=== PATIENT | female | born 1955 | race Caucasian/White ===

== ENCOUNTER → 2019-06-14 10:12 | Outpatient (CLI) | payer BC, SELFPAY ==
--- NOTE | ~2019-06-14 | US_ITS ---
EXAMINATION: US carotid duplex BI DATE: 06/14/2019 10:42 INDICATION: Headache. TECHNIQUE: Grayscale, color Doppler, and pulsed Doppler images of the cervical carotid arteries were obtained. The degree of vessel stenosis is placed in one of the following categories: normal, <50%, 5 0-69%, >=70% but less than near-occlusion, near-occlusion, or total occlusion. Note that percent sten osis relative to normal distal artery lumen diameter is indirectly measured from velocity measurement s as described by Alfonso, et al. Radiology 2003; 229:340-346. COMPARISON: None. FINDINGS: RIGHT: The right common carotid artery (CCA) peak systolic velocity (PSV) is 84 cm/s. The right internal car otid artery (ICA) PSV is 65 cm/s. The right ICA end-diastolic velocity (EDV) is 28 cm/s. The right IC A/CCA PSV ratio is 0.8. Grayscale and color Doppler images yield an estimate of <50% diameter reducti on from plaque in the ICA. There is antegrade flow in the right vertebral artery. LEFT: The left CCA PSV is 90 cm/s. The left ICA PSV is 64 cm/s. The left ICA EDV is 26 cm/s. The left ICA/C CA PSV ratio is 0.7. Grayscale and color Doppler images yield an estimate of <50% diameter reduction from plaque in the ICA. There is antegrade flow in the left vertebral artery. IMPRESSION: 1. <50% stenosis in the right internal carotid artery. 2. <50% stenosis in the left internal carotid artery. Reviewed, dictated and finalized at location A. T ATTENDANT
== END ==
PROVIDERS: PCP Internal Medicine; Visit Provider Internal Medicine
DX: R51 Headache (principal); I65.23 Occlusion and stenosis of bilateral carotid arteries
CPT/HCPCS: 93880

== ENCOUNTER 2019-11-05 09:03 | Outpatient (CLI) | payer BC, SELFPAY ==
--- NOTE | ~2019-11-05 | MM_ITS ---
EXAMINATION: MM screening babatunde BI w malcom HISTORY: Screening TECHNIQUE: Craniocaudal and mediolateral oblique 3-D tomosynthesis images were obtained and synthetic 2-D images were generated. CAD analysis was submitted and interpreted. COMPARISON: Comparison to multiple prior studies sequentially, with oldest reviewed study dated 10/2014. BREAST PARENCHYMAL COMPOSITION: The breasts are heterogeneously dense, which may obscure small masses . FINDINGS: There is no evidence of suspicious mass, calcification, or architectural distortion to sugg est malignancy in either breast. There has been no suspicious interval change. IMPRESSION: 1. No mammographic evidence of malignancy. 2. Recommend routine screening mammography in one year. BI-RADS Category 1: Negative Reviewed, dictated and finalized at location A.
== END 2019-11-05 09:04 | disposition home or self-care (01) ==
LOC: ANHIMG 09:05
PROVIDERS: PCP Internal Medicine; Visit Provider Obstetrics & Gynecology
DX: Z12.31 Encounter for screening mammogram for malignant neoplasm of breast (principal)
CPT/HCPCS: 77063; 77067

== ENCOUNTER 2020-11-07 15:26 | Outpatient (CLI) | payer BC, SELFPAY ==
--- NOTE | ~2020-11-07 | MM_ITS ---
EXAMINATION: MM screening babatunde BI w malcom HISTORY: Screening mammogram TECHNIQUE: Craniocaudal and mediolateral oblique 3-D tomosynthesis images were obtained and synthetic 2-D images were generated. CAD analysis was submitted and interpreted. COMPARISON: 11/01/2019, , 09/11/2017 bilateral digital screening mammogram examinations BREAST PARENCHYMAL COMPOSITION: The breasts are heterogeneously dense, which may obscure small masses . FINDINGS: There is no evidence of suspicious mass, calcification, or architectural distortion to sugg est malignancy in either breast. There has been no suspicious interval change. IMPRESSION: 1. No mammographic evidence of malignancy. 2. Recommend routine screening mammography in one year. BI-RADS Category 1: Negative Reviewed, dictated and finalized at location A.
== END 2020-11-07 15:27 | disposition home or self-care (01) ==
LOC: ANHIMG 15:28
PROVIDERS: PCP Internal Medicine; Visit Provider Obstetrics & Gynecology
DX: Z12.31 Encounter for screening mammogram for malignant neoplasm of breast (principal)
CPT/HCPCS: 77063; 77067

== ENCOUNTER → 2021-03-06 12:37 | Outpatient (CLI) | payer BC, SELFPAY ==
--- NOTE | ~2021-03-06 | MR_ITS ---
EXAMINATION: MR venography brain EXAM DATE: 03/06/2021 13:58 INDICATION: New onset of headaches new onset of headaches. TECHNIQUE: Magnetic resonance venogram imaging (MRV) images of the intracranial venous system were ob tained. 2-D [id number]-qi-[id number] imaging was utilized for this examination without contrast. 3-D rotational images generated. Correlation was made with MR brain 2018. FINDINGS: There is expected flow related signal within the sagittal, straight, transverse and sigmoid sinuses. The right sagittal sinus and corresponding internal jugular vein is larger than the left, c ongenital appearance. Internal cerebral veins also demonstrate normal flow related signal. IMPRESSION: Normal, nonthrombosed intracranial venous system. Reviewed, dictated and finalized at location A. E PLANER
--- NOTE | ~2021-03-06 | MR_ITS ---
EXAMINATION: MRA brain wo con EXAM DATE: 03/06/2021 13:47 INDICATION: New onset of headaches new onset of headaches. Headache behind left eye. TECHNIQUE: 3-D [id number] MRA of the intracranial arteries was performed without contrast. There is no prior study for comparison. FINDINGS: There is normal flow related signal seen within the vertebral, basilar and internal carotid arteries. There is no proximal stenosis. There are no aneurysms identified. Both A1 segments are patent. Th ere is right-sided posterior communicating artery dominant posterior cerebral artery. Flow in the cerebral arteries is symmetric. IMPRESSION: Normal MRA brain exam. Reviewed, dictated and finalized at location A. KEY REGAUGER IMPRESSION: Normal MRA brain exam.
== END ==
PROVIDERS: PCP Internal Medicine
DX: R51.9 Headache, unspecified (principal)
CPT/HCPCS: 70544

== ENCOUNTER → 2021-03-07 10:40 | Outpatient (CLI) | payer BC, SELFPAY ==
--- NOTE | ~2021-03-07 | MR_ITS ---
EXAMINATION: MR brain/brain stem wo/w con EXAM DATE: 03/07/2021 11:37 INDICATION: Headache behind left eye, symptoms progressing. TECHNIQUE: Magnetic resonance imaging (MRI) of the brain/brain stem obtained without contrast. Sagit eulogio T1, axial diffusion, gradient echo (T2*), T1, T2, FLAIR sequences obtained. Patient was then inj ected with 10 cc intravenous Multihance contrast. Axial and coronal postcontrast T1 weighted sequence s obtained. Correlation is made to MRA, MRV from yesterday. FINDINGS: There are no areas of restricted diffusion to suggest acute infarction. There is no acute hemorrhage seen on the T2*, a hemosiderin sensitive sequence. No intraparenchymal brain mass. The ve ntricles are normal in size. There are no extra-axial collections. Flow voids are seen in the cereb ral arteries on the T2-weighted sequences consistent with their expected patency. Both of the globe have slightly aspherical shape. Orbits are otherwise unremarkable. Soft tissue is unremarkable. Th ere are no areas of abnormal enhancement on the postcontrast images. IMPRESSION: Slightly aspherical globe shapes. Otherwise unremarkable brain MRI. Reviewed, dictated and finalized at location A. MACY PICKING TECHNICIAN
[2021-03-07 11:06] LABS: Estimated Glomerular Filt Rate > 60
== END ==
PROVIDERS: PCP Internal Medicine
DX: R51.9 Headache, unspecified (principal)
CPT/HCPCS: 70553; A9577

== ENCOUNTER 2021-11-05 05:27 | Emergency (ER) | payer BC, SELFPAY ==
[2021-11-05] VITALS (8 sets, daily range): BP systolic 95–105; BP diastolic 47–73; PULSE 62–73; RESP 12–20; TEMP 36.2; O2SAT 100
--- NOTE | 2021-11-05 05:50 | ECG_ITS ---
Measurements Intervals [place] Rate: 58 P: 74 DE: 216 QRS: 26 QRSD: 81 T: 54 QT: 396 QTc: 391 Interpretive Statements SINUS BRADYCARDIA WITH FIRST DEGREE AV BLOCK INCOMPLETE RIGHT BUNDLE BRANCH BLOCK ABNORMAL ECG Electronically Signed On 11-05-2021 7:05:01 CDT by Brian Thomas D.O.
[2021-11-05] MEDS: MECLIZINE HCL 25 MG TABLET PO (06:00)
[2021-11-05] MEDS: ONDANSETRON HCL ODT 4 MG TABLET PO (06:00)
--- NOTE | 2021-11-05 06:01 | ED.GENADULT ---
HPI - General Adult General Chief complaint: Dizziness Stated complaint: dizziness, nausea Time Seen by Provider: 11/05/21 05:56 History of Present Illness HPI narrative: 66-year-old female presenting to the emergency department for evaluation of vertigo symptoms. Patient was started on Cipro for a urinary tract infection on Friday patient has taken Cipro previously without issue for urinary tract infection currently. Patient woke up on Friday morning and was having some vertigo symptoms that lasted approximately 4 hours. Patient states when she woke up this morning she was having vertigo symptoms again. Patient states that she lies on her right side the symptoms are worsened. When patient is up and moving the symptoms are worsened. Symptoms are improved when she is resting and closing her eyes. Patient denies any associated numbness or weakness. Patient has no prior history of CVA or TIA. Patient did have work-up for frequent headaches earlier in the year and had multiple MRIs which were normal per the patient. Related Data Home Medications Medication Instructions Recorded Confirmed alendronate 35 mg tablet 35 mg PO WEEKLY 09/25/20 amphotericin B liposome 50 mg IV 09/25/20 intravenous suspension ascorbic acid (vitamin C) 1,000 mg 1 g PO DAILY 09/25/20 tablet calcium citrate 200 mg (950 mg) 600 mg PO DAILY 09/25/20 tablet coenzyme Q10 200 mg/gram oral mg PO 09/25/20 powder (H2Q CoQ10) conjugated estrogens 0.45 mg 0.45 mg PO DAILY 09/25/20 tablet (Premarin) lutein 40 mg capsule 40 mg PO DAILY 09/25/20 omega-3 fatty acids 1,000 mg 1,000 mg PO DAILY 09/25/20 capsule (Fish Oil Concentrate) tumeric 100 mg-erika 150 mg-olive cap PO 09/25/20 50 mg-oreg 150 mg-caprylate capsule vitamin E 200 unit capsule 200 unit PO DAILY 09/25/20 Allergies Allergy/AdvReac Type Severity Reaction Status Date / Time Sulfa (Sulfonamide Allergy Mild Unknown Verified 11/05/21 05:50 Antibiotics) meperidine [From Demerol] Allergy Unknown Swelling Verified 11/05/21 05:50 Review of Systems Review of Systems: CONSTITUTIONAL: Denies fever, chills, or sweats. EYES: Denies visual changes, redness, or discharge. ENT: Denies rhinorrhea, congestion, sore throat, or otalgia. CARDIOVASCULAR: Denies chest pain, palpitations, or edema. RESPIRATORY: Denies cough or dyspnea. GASTROINTESTINAL: Nausea GENITOURINARY: Denies dysuria or hematuria. SKIN: Denies rash or itching. MUSCULOSKELETAL: Denies back pain, joint pain, or myalgia. NEUROLOGIC: Vertigo PMFSH Past Medical History Medical History (Updated 11/05/21 @ 07:03 by Darío Alamo MD) Acquired hallux valgus of left foot Claustrophobia Hallux rigidus of left foot Wears glasses Surgical History Surgical History (Updated 09/25/20 @ 08:14 by Christina Dent RT(R)) History of History of surgery on wrist Family History Family History (Updated 09/25/20 @ 08:14 by Christina Dent RT(R)) Mother Hypertension Acute myocardial infarction Family history of elevated blood lipids Family history of coronary artery disease Father Family history of malignant neoplasm of thyroid Other Depression Diabetes mellitus Family history of arthritis Family history of malignant neoplasm Heart disease Social History Social History (Updated 09/25/20 @ 08:14 by Christina Dent RT(R)) Smoking packs per day: 1 Smoking cigarettes per day: 20.0 Smoking status: Former smoker Smoking end date: 04/14/96 Alcohol intake: current Drinks per week: 2 Substance use: never Substance use type: does not use Gender identity (if verbalized by the patient): Female Exam Narrative: APPEARANCE: Well appearing, no pain, no distress, well-nourished. HEAD: normocephalic, atraumatic. EYES: PERRLA/EOMI, conjunctivae clear. NOSE: Normal no drainage EARS:TMS clear with good light reflex. NECK: Supple. No adenopathy, no masses. RESPIRAT
[2021-11-05 06:11] LABS: Basophils Absolute Auto 0.1 K/mm3 (0.0-0.1); Basophils Percent Auto 1.7 % (0.2-1.2); Eosinophils Absolute Auto 0.1 K/mm3 (0-0.3); Eosinophils Percent Auto 2.2 % (0-4.4); Hematocrit 42.8 % (37.0-47.0); Hemoglobin 14.1 g/dL (12.0-15.0); Immature Granulocyte Absolute 0.01 K/mm3 (0.00-0.031); Immature Granulocyte Percent A 0.2 % (0-0.5); Lymphocytes Absolute Auto 2.01 K/mm3 (0.9-3.2); Lymphocytes Percent Auto 36.9 % (18.3-44.2); Mean Corpuscular HGB Conc 32.9 g/dl (32-36); Mean Corpuscular Hemoglobin 30.2 pg (26-34); Mean Corpuscular Volume 91.6 fl (80-100); Mean Platelet Volume 9.5 fl (7.4-10.4); Monocytes Absolute Auto 0.4 K/mm3 (0.1-0.6); Neutrophils Absolute Auto 2.8 K/mm3 (1.3-6.7); Platelet Count Result 270 k/mm3 (150-375); Red Blood Count 4.67 M/mm3 (4.2-5.4); Red Cell Distribution Width 12.4 % (11.5-14.5); White Blood Count 5.5 K/mm3 (4.5-10.0)
[2021-11-05 06:20] LABS: Alanine Aminotransferase 18 U/L (6-35); Albumin Level 4.8 g/dL (3.5-5.1); Alkaline Phosphatase 41 U/L (38-126); Anion Gap 11 mmol/L (8-16); Aspartate Amino Transferase 30 U/L (14-36); Bilirubin,Total 0.7 mg/dL (0.2-1.3); Blood Urea Nitrogen 17 mg/dL (7-17); Calcium 9.5 mg/dL (8.4-10.2); Carbon Dioxide 25 mmol/L (22-30); Chloride 105 mmol/L (98-107); Estimated CRCL calculation 75 ml/min; Estimated Glomerular Filt Rate > 60; Glucose 97 mg/dL (65-110); Potassium 3.9 mmol/L (3.4-5.0); Sodium 141 mmol/L (137-145)
== END 2021-11-05 07:18 | disposition home or self-care (01) ==
PROVIDERS: Emergency Provider Emergency Medicine; PCP Internal Medicine
DX: R42 Dizziness and giddiness (principal); Z87.891 Personal history of nicotine dependence
CPT/HCPCS: 36415; 80053; 85025; 93005; 99283; A9270

== ENCOUNTER 2021-12-04 08:24 | Outpatient (CLI) | payer BC, SELFPAY ==
--- NOTE | ~2021-12-04 | MM_ITS ---
EXAMINATION: MM screening babatunde BI w malcom HISTORY: Screening TECHNIQUE: Craniocaudal and mediolateral oblique 3-D tomosynthesis images were obtained and synthetic 2-D images were generated. CAD analysis was submitted and interpreted. COMPARISON: Comparison to multiple prior studies sequentially, with oldest reviewed study dated 08/24. BREAST PARENCHYMAL COMPOSITION: The breasts are heterogeneously dense, which may obscure small masses . FINDINGS: There is a developing focal asymmetry in the lower outer quadrant of the left breast, middl e third. The right breast is stable without evidence for malignancy. IMPRESSION: 1. Developing left breast asymmetry. 2. Additional mammographic views and possible breast ultrasound are recommended. BI-RADS Category 0: Incomplete: Needs additional imaging evaluation. Reviewed, dictated and finalized at location A. IMPRESSION: 1. Developing left breast asymmetry. 2. Additional mammographic views and possible breast ultrasound are recommended . BI-RADS Category 0: Incomplete: Needs additional imaging evaluation.
== END 2021-12-04 08:25 | disposition home or self-care (01) ==
LOC: ANHIMG 08:25
PROVIDERS: PCP Internal Medicine; Visit Provider Internal Medicine
DX: Z12.31 Encounter for screening mammogram for malignant neoplasm of breast (principal); R92.8 Other abnormal and inconclusive findings on diagnostic imaging of breast
CPT/HCPCS: 77063; 77067

== ENCOUNTER 2022-01-03 11:49 | Outpatient (CLI) | payer MEDICARE, SELFPAY ==
--- NOTE | ~2022-01-03 | MM_ITS ---
EXAMINATION: MM diagnostic babatunde LT w malcom HISTORY: Focal asymmetry of the left breast on screening mammogram TECHNIQUE: Additional 3-D tomosynthesis images of the left breast were performed and synthetic 2-D im ages were generated. CAD analysis was submitted and interpreted. COMPARISON: 12/04/2021, 11/07/2020,11/05/2019 BREAST PARENCHYMAL COMPOSITION: The breasts are heterogeneously dense, which may obscure small masses . FINDINGS: There is a return to baseline fibroglandular appearance with spot compression of the left b reast in the area questioned on screening mammogram. IMPRESSION: 1. No mammographic evidence of malignancy. 2. Recommend routine screening mammography in one year. BI-RADS Category 1: Negative Reviewed, dictated and finalized at location A.
== END 2022-01-03 11:50 | disposition home or self-care (01) ==
PROVIDERS: PCP Internal Medicine; Visit Provider Obstetrics & Gynecology
DX: R92.8 Other abnormal and inconclusive findings on diagnostic imaging of breast (principal)
CPT/HCPCS: 77061; 77065; G0279

== ENCOUNTER 2022-05-02 00:29 | Day surgery (SDC) | payer MEDICARE, SELFPAY ==
[2022-03-28 12:27] VITALS: BMI 21.3
--- NOTE | 2022-03-28 12:49 | PC.NURSE ---
Report to the Outpatient Waiting Room, entrance under the green pavilion located off [facility], at time __7:00AM on date __04/11/22 . Planned Procedure Time: __9:00AM . Time changes happen often and if your time is changed the preop area will call you the afternoon before. - You and your visitor will be asked to self-screen and do not enter if you have any COVID symptoms. - Only one visitor is requested with a max of two and NO children visitors are allowed at this time. - The patient visitor may be requested to leave or wait in car when not with patient due to distancing restrictions. - A mask is optional within the hospital. Patients may have clear liquids (water, carbonated beverages, clear teas, apple juice) until 3 hours prior to surgery with a maximum of 20 ounces. - No food from midnight until time of surgery. Take the following medications with a SIP of water the morning of surgery: ___NONE Medications to discontinue per physician _HOLD ALL VITAMINS/SUPPLEMENTS 3 DAYS PRE-OP Date to take last dose___04/07/22 Please no make-up, nail qatari, hairspray, perfume, deodorant, or body powder the day of surgery. No jewelry (including any body piercings) or valuables the day of surgery, leave them at home. Please take a shower or bath the night before, or the morning of, surgery with an antibacterial soap. Wear comfortable, loose fitting clothing. Children are encouraged to wear pajamas. - Jewelry must be removed prior to entering the operating room. Rings and piercings that are not removed may be cut off. - The hospital will not accept responsibility for valuables. - Please leave all valuables, including medications, at home the day of surgery. If you are going home after surgery, a licensed hazardous materials driver must drive you home. - NO public transportation without another adult if you receive anesthesia. - We recommend that an adult stay with you for 24 hours following discharge. - We also recommend that you do not drive, make important decision, drink alcoholic beverages, or take any drugs that were not prescribed by your health care provider for at least 24 hours after your discharge time. Follow any additional instructions given to you from your surgeon. If you or anyone in your household have experienced Covid symptoms in the past week, please notify your surgeon or the nurse liaison at the phone number below for possible testing. Telephone instructions given to __PATIENT and asked if any additional questions and then verbalized understanding. Patient advised to call surgeon office or pre surgery nurse liaison [phone] if any additional questions.
--- NOTE | 2022-04-26 09:56 | PC.NURSE ---
Report to the Outpatient Waiting Room, entrance under the green pavilion located off [facility], at time __1000 on date __05/02/22 . Planned Procedure Time: __1200 . Time changes happen often and if your time is changed the preop area will call you the afternoon before. - You and your visitor will be asked to self-screen and do not enter if you have any COVID symptoms. - Only one visitor is requested with a max of two and NO children visitors are allowed at this time. - The patient visitor may be requested to leave or wait in car when not with patient due to distancing restrictions. - A mask is optional within the hospital. Patients may have clear liquids (water, carbonated beverages, clear teas, apple juice) until 3 hours prior to surgery ( 0900 AM) with a maximum of 20 ounces. - No food from midnight until time of surgery - Infants may have breast milk until 4 hours before surgery, formula 6 hours prior to surgery. - Children will be allowed to drink immediately following surgery. If applicable, please bring a bottle or sippy cup to assist with drinking. Juice, water, soda, and popsicles are readily available. For infants on formula, please bring formula the day of surgery. Pacifiers are allowed. Take the following medications with a SIP of water the morning of surgery: __NONE__ Medications to discontinue per ANESTHESIA - _VITAMINS/SUPPLEMENTS, 3 DAYS PRIOR TO SURGERY, Date to take last dose_04/28/22__ Please no make-up, nail lao, hairspray, perfume, deodorant, or body powder the day of surgery. No jewelry (including any body piercings) or valuables the day of surgery, leave them at home. Please take a shower or bath the night before, or the morning of, surgery with an antibacterial soap. Wear comfortable, loose fitting clothing. Children are encouraged to wear pajamas. - Jewelry must be removed prior to entering the operating room. Rings and piercings that are not removed may be cut off. - The hospital will not accept responsibility for valuables. - Please leave all valuables, including medications, at home the day of surgery. If you are going home after surgery, a licensed escort car driver must drive you home. - NO public transportation without another adult if you receive anesthesia. - We recommend that an adult stay with you for 24 hours following discharge. - We also recommend that you do not drive, make important decision, drink alcoholic beverages, or take any drugs that were not prescribed by your health care provider for at least 24 hours after your discharge time. For Pediatric surgeries, we recommend two adults accompany the child home. Follow any additional instructions given to you from your surgeon. If you or anyone in your household have experienced Covid symptoms in the past week, please notify your surgeon or the nurse liaison at the phone number below for possible testing. Telephone instructions given to ____PT and asked if any additional questions and then verbalized understanding. Patient advised to call surgeon office or pre surgery nurse liaison [phone] if any additional questions.
--- NOTE | 2022-04-30 15:52 | PM.IMHP ---
H&P: HPI History of Present Illness Date/Time: 04/30/22 15:52 Chief Complaint: Left hallux pain and deformity Narrative: 67-year-old woman with left hallux deformity with prominence medial and dorsal metatarsal head as well as pain with shoe wear, weight-bearing and activity. Unrelieved with custom shoes, inserts and activity modification. Pain on a daily basis which affects her activity. She presents for operative treatment. Review of Systems Constitutional: Constitutional: Denies fever(s) Eyes: Eyes: Denies blurry vision ENT: Reports Normal hearing present Cardiovascular: Cardiovascular: Denies chest pain and Denies dyspnea Respiratory: Respiratory: Denies dyspnea and Denies wheezing Gastrointestinal: Gastrointestinal: Denies abdominal pain Genitourinary: Genitourinary: Denies urinary urgency Musculoskeletal: Musculoskeletal: Reports as per HPI and Denies numbness Integumentary/Breasts: Skin/Breast: Denies changing lesions and Denies sores Neurologic: Reports Normal hearing present, Denies behavioral changes, Denies confusion, Denies numbness and Denies convulsions Psychiatric: Psychiatric: Denies behavioral changes, Denies confusion and Denies hallucinations Endocrine: Endocrine: Denies heat intolerance Hematologic/Lymphatic: Hematologic/Lymphatic: Denies easy bleeding Allergic/Immunologic: Allergic/Immunologic: Denies wheezing PMFSH Past Medical History Medical History Acquired hallux valgus of left foot Callus of toe Claustrophobia Hallux rigidus of left foot Insomnia Wears glasses Surgical History Surgical History History of History of surgery on wrist Family History Family History Mother Hypertension Acute myocardial infarction Family history of elevated blood lipids Family history of coronary artery disease Father Family history of malignant neoplasm of thyroid Other Depression Diabetes mellitus Family history of arthritis Family history of malignant neoplasm Heart disease Social History Social History Smoking packs per day: 1 Smoking cigarettes per day: 20.0 Years smoked: 22 Smoking pack-years: 22.00 Smoking status: Former smoker Tobacco type: cigarettes Smoking end date: 07/01/99 Alcohol intake: current Drinks per week: 2 Substance use: never Substance use type: does not use Lack of Transportation: No Lack of Food: Never True Current Housing: I Have Housing Concerned About Future Housing: No Difficulty Paying Gas/Electric Bills: No Difficulty Paying for Meds: No Currently Unemployed: No Education: High School Diploma/GED Difficulty w/ Childcare or Family Care: No Additional living arrangements comments: SPOUSE Gender identity (if verbalized by the patient): Female Spiritual care concerns: No Meds Home Medications and Allergies Home Medications Medication Instructions Recorded Confirmed Type ascorbic acid (vitamin C) 1,000 mg 1 g PO DAILY 09/25/20 03/28/22 History tablet lutein 40 mg capsule 40 mg PO DAILY 09/25/20 03/28/22 History calcium citrate 200 mg (950 mg) 1,000 mg PO DAILY 02/26/22 03/28/22 History tablet cholecalciferol (vitamin D3) 50 50 mcg PO DAILY 02/26/22 03/28/22 History mcg (2,000 unit) capsule cyclobenzaprine 10 mg tablet 10 mg PO .HS PRN muscle spasm #30 02/26/22 03/28/22 Rx tabs magnesium oxide 400 mg PO DAILY 02/26/22 03/28/22 History omega-3 fatty acids 1,000 mg 1,000 mg PO DAILY 02/26/22 03/28/22 History capsule (Fish Oil Concentrate) zinc acetate 50 mg (zinc) capsule 50 mg PO DAILY 02/26/22 03/28/22 History estradiol 0.01% (0.1 mg/gram) 1 appful vaginal 3XW 03/28/22 03/28/22 History vaginal cream nirmatrelvir 300 mg (150 mg See Rx In
[2022-05-02] VITALS (9 sets, daily range): BP systolic 95–120; BP diastolic 63–82; PULSE 76–102; RESP 12–20; TEMP 36.5–37.6; O2SAT 99–100
--- NOTE | ~2022-05-02 | XR_ITS ---
EXAMINATION: XR surgery orthopedic DATE: 05/02/2022 13:09 INDICATION: Left foot first metatarsophalangeal arthrodesis TECHNIQUE: 4 fluoroscopic images of the left forefoot were obtained during procedure performed by Dr. Babb. Radiologist was not present for the imaging or procedure. The amount of fluoroscopy time us ed during this procedure was 0.1 minutes. COMPARISON: None. FINDINGS: Initial image demonstrates osteotomy at the head of the first metatarsal and placement of a percutane ous pin spanning the first metatarsophalangeal joint. Subsequent images demonstrate completion of the instrumented first metatarsophalangeal arthrodesis with placement of a cannulated variable pitch scr ew which has been placed over the percutaneous wire which has since been removed as well as a dorsal plate-screw fixation. Alignment post arthrodesis appears near-anatomic. No fracture. Remaining joint spaces are normal. Expected small amount of soft tissue gas the operative bed. IMPRESSION: 1. Expected appearance post internally fixed first metatarsophalangeal arthrodesis. Reviewed, dictated and finalized at location A. STANT ACCOUNT EXECUTIVE IMPRESSION: 1. Expected appearance post internally fixed first metatarsophalangeal arthrode sis.
[2022-05-02] MEDS: ACETAMINOPHEN 500 MG TABLET 1000 MG PO (10:06)
[2022-05-02] MEDS: LACTATED RINGERS 1,000 ML 30 ML IV CONT (11:20)
[2022-05-02] MEDS: KETOROLAC 15 MG/ML VIAL (*BKC) IV PUSH (11:27)
--- NOTE | 2022-05-02 11:29 | WPDANESEPPF ---
Anes - Initial Pre Proc Eval Procedure: Operation Date: 05/02/22 12:00 Proposed Procedures p Left Hallux Metatarsophalangeal Arthrodesis, Shaving Fourth Toe Callus - Vikas Babb MD Date/Time: 05/02/22 11:29 Surgeon: Vikas Babb MD Pre Op Diagnosis: Lt Hallux,Rigidus,Arthritis,Sesamoiditis Patient Data Age: 67 Gender: F Height: 1.57 m Weight: 53 kg Allergies Allergy/AdvReac Type Severity Reaction Status Date / Time Sulfa (Sulfonamide Allergy Mild SWELLING, Verified 05/02/22 10:02 Antibiotics) HIVES meperidine [From Demerol] Allergy Unknown Swelling, Verified 05/02/22 10:02 RASH Home Medications Medication Instructions Recorded Confirmed Type ascorbic acid (vitamin C) 1,000 mg 1 g PO DAILY 09/25/20 05/02/22 History tablet lutein 40 mg capsule 40 mg PO DAILY 09/25/20 05/02/22 History calcium citrate 200 mg (950 mg) 1,000 mg PO DAILY 02/26/22 05/02/22 History tablet cholecalciferol (vitamin D3) 50 50 mcg PO DAILY 02/26/22 05/02/22 History mcg (2,000 unit) capsule cyclobenzaprine 10 mg tablet 10 mg PO .HS PRN muscle spasm #30 02/26/22 05/02/22 Rx tabs magnesium oxide 400 mg PO DAILY 02/26/22 05/02/22 History omega-3 fatty acids 1,000 mg 1,000 mg PO DAILY 02/26/22 05/02/22 History capsule (Fish Oil Concentrate) zinc acetate 50 mg (zinc) capsule 50 mg PO DAILY 02/26/22 05/02/22 History estradiol 0.01% (0.1 mg/gram) 1 appful vaginal 3XW 03/28/22 05/02/22 History vaginal cream ciprofloxacin HCl 500 mg tablet 500 mg PO Q12H 04/26/22 05/02/22 History (Cipro) Patient hx anesthesia problems: none Family hx anesthesia problems: none Results Review: All pre-operative results and documents have been reviewed as part of the pre-operative evaluation. [facility] Past Medical History Medical History Acquired hallux valgus of left foot Callus of toe Claustrophobia Hallux rigidus of left foot Insomnia Wears glasses Surgical History Surgical History History of History of surgery on wrist Family History Family History Mother Hypertension Acute myocardial infarction Family history of elevated blood lipids Family history of coronary artery disease Father Family history of malignant neoplasm of thyroid Other Depression Diabetes mellitus Family history of arthritis Family history of malignant neoplasm Heart disease Social History Social History Smoking packs per day: 1 Smoking cigarettes per day: 20.0 Years smoked: 22 Smoking pack-years: 22.00 Smoking status: Former smoker Tobacco type: cigarettes Smoking end date: 10/12/98 Alcohol intake: current Drinks per week: 2 Substance use: never Substance use type: does not use Lack of Transportation: No Lack of Food: Never True Current Housing: I Have Housing Concerned About Future Housing: No Difficulty Paying Gas/Electric Bills: No Difficulty Paying for Meds: No Currently Unemployed: No Education: High School Diploma/GED Difficulty w/ Childcare or Family Care: No Living arrangements: with family Additional living arrangements comments: [facility] Gender identity (if verbalized by the patient): Female Spiritual care concerns: No Anes - Eval Final PreProcedure Day of Procedure 05/02/22 11:29 Patient weight: normal Heart: regular rate and rhythm Lungs: clear to auscultation Airway: Mallampati scale class II Neurological: alert and oriented Last oral intake: >/= 8 hours ASA classification: II Emergent: no Anesthetic plan: proceed Anesthesia type and monitoring: general LMA and standard monitoring Results Review: All pre-operative results and documents have been reviewed as part of the pre-operative evaluation. I
--- NOTE | 2022-05-02 11:56 | WPDHPUPDATE1 ---
History and Physical Update Update Date/Time: 05/02/22 11:56 History and Physical has been reviewed, including an updated exam of the patient. There are NO changes in the patient's condition. Risks, benefits, and alternatives have been discussed and questions answered. Patient agrees to proceed with procedure.
[2022-05-02] MEDS: ceFAZolin 2 GM/D5W 50 ML 2 GM/50 ML BAG IVPB (12:02)
[2022-05-02] MEDS: BUPIVACAINE HCL 0.5% PF 30 ML VIAL INFILTRATE (12:33)
--- NOTE | 2022-05-02 13:30 | P.OP_ITS ---
Procedure Note - Detailed Date of Procedure 05/02/22 Pre-op Diagnosis Lt Hallux,Rigidus,Arthritis,Sesamoiditis Post-op Diagnosis Same Procedure Performed Left hallux metatarsophalangeal arthrodesis with shaving of callus 4th toe Surgeon Vikas Babb MD Managing Principal 1st field research assistant Anesthesia General Indications 67-year-old woman with left hallux valgus deformity with degenerative changes and stiffness. Pain with daily activity, weight-bearing and shoes. Presents for operative treatment having failed conservative treatment. Also with painful callus on the 4th toe. Desires removal. Description of Procedure Patient identified in the preoperative holding. Informed consent given. Operative extremity marked. Patient received intravenous antibiotics. Patient brought to the operating room where underwent general anesthetic by anesthesia team. Positioned supine on operating room table. Time-out performed confirming the patient, site of the surgery and the plan. foot prepped and draped usual sterile surgical fashion using a ChloraPrep skin solution. Foot and ankle exsanguinated and a calf tourniquet inflated to 225 mmHg. Longitudinal incision made dorsum of hallux centered over metatarsophalangeal joint with a 15 blade knife. Hemostasis controlled electrocautery. Extensor hallucis tendon retracted laterally and a dorsal capsulotomy performed in line with the longitudinal skin incision. Soft tissue released off of the metatarsal to expose the joint. Extensive scar and fibrosis of the joint noted. Rongeur used to remove excess osteophytes. Reaming of the joint then performed with the Arthrex joint preparation reamers. Guide pin placed metatarsal and reaming performed size 18 mm. Guide pin then placed in the proximal phalanx and reaming performed to a size 18 mm. Wound thoroughly irrigated and debris removed. Plantar osteophytes carefully removed as well as the medial sesamoid. Joint then aligned and provisionally pinned. Alignment checked with image intensification 3rd fixation achieved with a dorsal locking plate with compression and a 3.5 mm lag screw. Image intensification confirmed final position. Wound irrigated and capsule closed with 0 Vicryl interrupted suture. Subcutaneous tissue repaired with 3-0 Monocryl interrupted suture and skin repaired with 4-0 nylon running suture. 4th toe then addressed. Fresh 15 blade knife used to shave the callus on the distal aspect of the 4th toe in a tangential manner. No bleeding encountered. Sterile dressing applied. The patient was then woken from anesthesia, extubated and taken to the recovery room in stable condition. All sponge, needle, instrument counts were correct at the end of the case. Implants Arthrex metatarsophalangeal arthrodesis plate and screws, 3.0 mm cannulated screw Estimated Blood Loss -5.0 Tourniquet Time 65 Drains No Packing No Pathology None sent Complications None Condition Stable Disposition PACU [facility] Billing Surgery - Charge Forward: Surgery Billing ([id number], [id number])
[2022-05-02] MEDS: fentaNYL CITRATE INJ (*CRX) 100 MCG/2 ML VIAL 25 MCG IV PUSH ×2 (13:53→13:55)
== END 2022-05-02 15:16 | disposition home or self-care (01) ==
PROVIDERS: PCP Internal Medicine; Visit Provider Orthopaedic Surgery
PROC: (CPT 28750; principal; 2022-05-02 12:00)
DX: M20.22 Hallux rigidus, left foot (principal); L84 Corns and callosities; M20.12 Hallux valgus (acquired), left foot; Z87.891 Personal history of nicotine dependence
CPT/HCPCS: 28750; 11055; 97161; 99199; A9270; C1713; C1769; J0690; J1100; J1885; J2250; J2405; J2704; J3010; J7120

== ENCOUNTER 2022-08-29 07:29 | Outpatient (CLI) | payer MEDICARE, SELFPAY ==
[2022-08-29 09:00] LABS: Basophils Absolute Auto 0.1 K/mm3 (0.0-0.1); Eosinophils Absolute Auto 0.1 K/mm3 (0-0.3); Hematocrit 41.6 % (37.0-47.0); Hemoglobin 13.7 g/dL (12.0-15.0); Immature Granulocyte Absolute 0.02 K/mm3 (0.00-0.031); Immature Granulocyte Percent A 0.3 % (0-0.5); Lymphocytes Percent Auto 25.4 % (18.3-44.2); Mean Corpuscular HGB Conc 32.9 g/dl (32-36); Mean Corpuscular Hemoglobin 30.4 pg (26-34); Mean Corpuscular Volume 92.4 fl (80-100); Mean Platelet Volume 9.3 fl (7.4-10.4); Monocytes Absolute Auto 0.4 K/mm3 (0.1-0.6); Neutrophils Absolute Auto 4.1 K/mm3 (1.3-6.7); Neutrophils Percent Auto 65.3 % (45.5-73.1); Platelet Count Result 331 k/mm3 (150-375); White Blood Count 6.3 K/mm3 (4.5-10.0)
[2022-08-29 09:12] LABS: Alanine Aminotransferase 20 U/L (6-35); Albumin Level 4.8 g/dL (3.5-5.1); Alkaline Phosphatase 45 U/L (38-126); Anion Gap 7 mmol/L (8-16); Aspartate Amino Transferase 29 U/L (14-36); Bilirubin,Total 0.6 mg/dL (0.2-1.3); Blood Urea Nitrogen 20 mg/dL (7-17); Calcium 9.4 mg/dL (8.4-10.2); Carbon Dioxide 29 mmol/L (22-30); Chloride 103 mmol/L (98-107); Cholesterol 224 mg/dL (0-200); Estimated Glomerular Filt Rate > 60; Glucose 79 mg/dL (65-110); HDL Direct 78 mg/dL; Sodium 139 mmol/L (137-145); Triglycerides 98 mg/dL (<150)
[2022-08-29 09:23] LABS: LDL Cholesterol Direct 125 mg/dL
== END 2022-08-29 07:30 | disposition home or self-care (01) ==
LOC: ANHLAB 07:31
PROVIDERS: PCP Internal Medicine; Visit Provider Internal Medicine
DX: R53.83 Other fatigue (principal); R74.8 Abnormal levels of other serum enzymes
CPT/HCPCS: 36415; 80053; 80061; 84443; 85025

== ENCOUNTER 2022-09-05 09:34 | Outpatient (NON) | payer MEDICARE, SELFPAY ==
[2022-09-05 11:04] LABS: Toxigenic C. Diff NEGATIVE (NEGATIVE)
== END 2022-09-05 09:35 | disposition home or self-care (01) ==
PROVIDERS: PCP Internal Medicine; Visit Provider Internal Medicine
DX: R19.7 Diarrhea, unspecified (principal)
CPT/HCPCS: 87045; 87177; 87209; 87427; 87493; 89055

== ENCOUNTER 2022-09-18 13:36 | Outpatient (CLI) | payer MEDICARE, SELFPAY ==
[2022-09-23 04:56] LABS: Immunoglobulin A 148 mg/dL (70-320); TTG IGA AB <1.0 U/mL (<15.0)
== END 2022-09-18 13:37 | disposition home or self-care (01) ==
PROVIDERS: PCP Internal Medicine; Visit Provider Nurse Practitioner
DX: K52.9 Noninfective gastroenteritis and colitis, unspecified (principal)
CPT/HCPCS: 36415; 82784; 85652; 86140; 86364

== ENCOUNTER 2022-09-18 13:47 | Outpatient (CLI) | payer MEDICARE, SELFPAY ==
[2022-09-18 15:22] LABS: CRP < 0.5 mg/dL (<1.0)
[2022-09-18 16:05] LABS: Erythrocyte Sedimentation Rate 13 mm/hr (0-20)
== END 2022-09-18 13:48 | disposition home or self-care (01) ==
PROVIDERS: PCP Internal Medicine; Visit Provider Nurse Practitioner
DX: K52.9 Noninfective gastroenteritis and colitis, unspecified (principal)
CPT/HCPCS: 36415; 85652; 86140

== ENCOUNTER 2022-09-19 10:08 | Outpatient (CLI) | payer MEDICARE, SELFPAY ==
[2022-09-29 17:12] LABS: Calprotectin, Stool 45 mcg/g
== END 2022-09-19 10:09 | disposition home or self-care (01) ==
LOC: ANHLAB 10:09
PROVIDERS: PCP Internal Medicine; Visit Provider Nurse Practitioner
DX: K52.9 Noninfective gastroenteritis and colitis, unspecified (principal)
CPT/HCPCS: 83993

== ENCOUNTER 2022-12-11 13:19 | Outpatient (CLI) | payer MEDICARE, SELFPAY ==
--- NOTE | ~2022-12-11 | MM_ITS ---
EXAMINATION: MM screening [facility] BI w malcom HISTORY: Screening mammogram TECHNIQUE: Craniocaudal and mediolateral oblique 3-D tomosynthesis images were obtained and synthetic 2-D images were generated. CAD analysis was submitted and interpreted. COMPARISON: 01/03/2022, 12/04/2021, 11/07/2020, 11/05/2019 BREAST PARENCHYMAL COMPOSITION: The breasts are heterogeneously dense, which may obscure small masses . FINDINGS: No suspicious mass, calcification, or architectural distortion are identified in either ava ast to suggest malignancy. There has been no suspicious interval change. IMPRESSION: 1. No mammographic evidence of malignancy. 2. Recommend routine screening mammography in one year. BI-RADS Category 1: Negative Reviewed, dictated and finalized at location A.
== END 2022-12-11 13:20 | disposition home or self-care (01) ==
LOC: ANHIMG 13:21
PROVIDERS: PCP Internal Medicine; Visit Provider Obstetrics & Gynecology
DX: Z12.31 Encounter for screening mammogram for malignant neoplasm of breast (principal)
CPT/HCPCS: 77063; 77067

== ENCOUNTER 2023-06-30 09:03 | Outpatient (CLI) | payer MEDICARE, SELFPAY ==
--- NOTE | ~2023-06-30 | XR_ITS ---
Cervical Spine: AP, lateral, open-mouth views Clinical History: Pain Findings: The normal lordotic curve is maintained. There is minimal grade 1 retrolisthesis of C5 over C6. There is minimal grade 1 anterolisthesis of C3 over C4. There is moderate degenerative disc narr owing at C5-C6 and C6-C7. Pre-vertebral soft tissues are unremarkable. Impression: Degenerative spondylosis, with grade one listheses, as above. No instability on flexion or extension. Reviewed, dictated and finalized at location M. Impression: Degenerative spondylosis, with grade one listheses, as above. No instability on flexion or extension.
== END 2023-06-30 09:04 | disposition home or self-care (01) ==
PROVIDERS: PCP Family Medicine; Visit Provider Family Medicine
DX: M54.2 Cervicalgia (principal); M47.892 Other spondylosis, cervical region
CPT/HCPCS: 72050

== ENCOUNTER 2023-07-01 10:08 | Outpatient (CLI) | payer MEDICARE, SELFPAY ==
[2023-07-01 07:15] LABS: Hemoglobin 13.6 g/dL (12.0-15.0); Mean Corpuscular HGB Conc 31.6 g/dl (32-36); Mean Corpuscular Hemoglobin 29.8 pg (26-34); Mean Corpuscular Volume 94.1 fl (80-100); Mean Platelet Volume 9.2 fl (7.4-10.4); Platelet Count Result 296 k/mm3 (150-375); Red Blood Count 4.57 M/mm3 (4.2-5.4); White Blood Count 5.8 K/mm3 (4.5-10.0)
[2023-07-01 07:23] LABS: Alanine Aminotransferase 16 U/L (6-35); Albumin Level 4.6 g/dL (3.5-5.1); Alkaline Phosphatase 38 U/L (38-126); Anion Gap 7 mmol/L (8-16); Aspartate Amino Transferase 27 U/L (14-36); Bilirubin,Total 0.5 mg/dL (0.2-1.3); Blood Urea Nitrogen 20 mg/dL (7-17); Calcium 9.6 mg/dL (8.4-10.2); Carbon Dioxide 29 mmol/L (22-30); Chloride 103 mmol/L (98-107); Cholesterol 208 mg/dL (0-200); Estimated Glomerular Filt Rate > 60; Glucose 88 mg/dL (65-110); HDL Direct 61 mg/dL; Potassium 4.4 mmol/L (3.4-5.0); Sodium 139 mmol/L (137-145); Triglycerides 147 mg/dL (<150)
[2023-07-01 07:34] LABS: LDL Cholesterol Direct 122 mg/dL
[2023-07-01 08:05] LABS: Vitamin D 25 Hydroxy 57.4 ng/mL
== END 2023-07-01 10:09 | disposition home or self-care (01) ==
PROVIDERS: PCP Family Medicine; Visit Provider Family Medicine
DX: G47.00 Insomnia, unspecified (principal); K58.0 Irritable bowel syndrome with diarrhea; M25.512 Pain in left shoulder; M54.2 Cervicalgia; R53.83 Other fatigue; E78.5 Hyperlipidemia, unspecified; E55.9 Vitamin D deficiency, unspecified
CPT/HCPCS: 36415; 80053; 80061; 82306; 85027

== ENCOUNTER 2023-12-17 14:54 | Outpatient (CLI) | payer MEDICARE, SELFPAY ==
--- NOTE | ~2023-12-17 | MM_ITS ---
EXAMINATION: MM screening [facility] BI w malcom HISTORY: Screening TECHNIQUE: Craniocaudal and mediolateral oblique 3-D tomosynthesis images were obtained and synthetic 2-D images were generated. CAD analysis was submitted and interpreted. COMPARISON: Comparison to multiple prior studies sequentially, with oldest reviewed study dated 06/2018. BREAST PARENCHYMAL COMPOSITION: Dense: The breasts are heterogeneously dense, which may obscure small masses FINDINGS: There is no evidence of suspicious mass, calcification, or architectural distortion to sugg est malignancy in either breast. There has been no suspicious interval change. IMPRESSION: 1. No mammographic evidence of malignancy. 2. Recommend routine screening mammography in one year. BI-RADS Category 1: Negative Reviewed, dictated and finalized at location B.
== END 2023-12-17 14:55 | disposition home or self-care (01) ==
LOC: ANHIMG 14:57
PROVIDERS: PCP Family Medicine; Visit Provider Obstetrics & Gynecology
DX: Z12.31 Encounter for screening mammogram for malignant neoplasm of breast (principal)
CPT/HCPCS: 77063; 77067

== ENCOUNTER 2024-01-02 09:09 | Outpatient (CLI) | payer MEDICARE, SELFPAY ==
[2024-01-02 10:22] LABS: Hematocrit 40.5 % (37.0-47.0); Hemoglobin 13.2 g/dL (12.0-15.0); Mean Corpuscular HGB Conc 32.6 g/dl (32-36); Mean Corpuscular Hemoglobin 30.6 pg (26-34); Mean Corpuscular Volume 93.8 fl (80-100); Mean Platelet Volume 9.5 fl (7.4-10.4); Platelet Count Result 284 k/mm3 (150-375); Red Blood Count 4.32 M/mm3 (4.2-5.4); Red Cell Distribution Width 12.5 % (11.5-14.5); White Blood Count 5.2 K/mm3 (4.5-10.0)
[2024-01-02 10:34] LABS: Alanine Aminotransferase 15 U/L (6-35); Albumin Level 4.4 g/dL (3.5-5.1); Alkaline Phosphatase 32 U/L (38-126); Anion Gap 9 mmol/L (4-12); Aspartate Amino Transferase 28 U/L (14-36); Bilirubin,Total 0.5 mg/dL (0.2-1.3); Blood Urea Nitrogen 15 mg/dL (7-17); Calcium 9.4 mg/dL (8.4-10.2); Carbon Dioxide 28 mmol/L (22-30); Chloride 102 mmol/L (98-107); Estimated Glomerular Filt Rate > 60; Glucose 64 mg/dL (65-110); Potassium 3.8 mmol/L (3.4-5.0); Sodium 139 mmol/L (137-145)
== END 2024-01-02 09:10 | disposition home or self-care (01) ==
PROVIDERS: PCP Family Medicine; Visit Provider Family Medicine
DX: G47.00 Insomnia, unspecified (principal); K52.9 Noninfective gastroenteritis and colitis, unspecified; R51.9 Headache, unspecified; R53.83 Other fatigue
CPT/HCPCS: 36415; 80053; 85027

== ENCOUNTER 2024-01-14 09:42 | Outpatient (CLI) | payer MEDICARE, SELFPAY ==
--- NOTE | ~2024-01-14 | XR_ITS ---
Lumbosacral Spine: AP and lateral views Clinical History: Pain Findings: Levoscoliosis present. No fracture or subluxation evident otherwise there is advanced degen erative disc narrowing at L2-L3 at L3-L4. There is advanced facet arthropathy throughout the lumbar s pine. The intervertebral disc spaces are preserved. The sacroiliac joints are normally outlined. Impression: Levoscoliosis with moderate degenerative spondylitic changes, as above. Reviewed, dictated and finalized at location M. Impression: Levoscoliosis with moderate degenerative spondylitic changes, as above.
== END 2024-01-14 09:43 | disposition home or self-care (01) ==
LOC: MICIMG 09:43
PROVIDERS: PCP Family Medicine; Visit Provider Family Medicine
DX: M51.369 Other intervertebral disc degeneration, lumbar region without mention of lumbar back pain or lower extremity pain (principal)
CPT/HCPCS: 72100

== ENCOUNTER 2024-04-08 13:04 | Outpatient (CLI) | payer MEDICARE, SELFPAY ==
[2024-04-08 13:29] LABS: Add Urine Microscopic? NO; Appearance Urine Clear (Clear); Bilirubin Urine Negative (Negative); Blood Urine Negative (Negative); Color Urine Yellow (Yellow); Glucose Urine UA Negative (Negative); Ketones Urine Negative (Negative); Leukocyte Esterase Ur Negative LEU/UL (Negative); Nitrate Urine Negative (Negative); Protein Urine Negative (Negative); Specific Grav Ur 1.007 (1.001-1.035); Urobilinogen Urine 0.2 mg/dL (<2.0)
== END 2024-04-08 13:05 | disposition home or self-care (01) ==
PROVIDERS: PCP Family Medicine; Visit Provider Family Medicine
DX: N39.0 Urinary tract infection, site not specified (principal)
CPT/HCPCS: 81003; 87086

== ENCOUNTER 2024-07-15 06:58 | Outpatient (CLI) | payer MEDICARE, SELFPAY ==
--- OUTSIDE RECORDS SUMMARY | 2024-07-15 07:01 | XMS_ITS | Clinical Summary ---
Author Organization [facility] Address [address] [place] [id number] Care Team Providers Care Cosmetician Apprentice Name Role Phone Helder Jordan MD Primary Care Provider [phone] Allergies Active Allergy Reactions Criticality Noted Date Comments Sulfa Antibiotics Hives 01/12/2021 Medications cyclobenzaprine 10 MG tablet TAKE 1 TABLET BY MOUTH DAILY AT BEDTIME NEEDED FOR MUSCLE SPASMS 11/17/2020 Active Doxycycline Hyclate 20 MG Tab TAKE 2 TABLETS BY MOUTH DAILY ON AN EMPTY STOMACH 11/24/2020 Active pimecrolimus 1 % cream APPLY TO RASH AREAS ON EYELIDS TWICE DAILY 01/09/2021 Active magnesium oxide 400 MG tablet 02/16/2021 Activ e LORazepam 1 MG tabletIndicatio ns:History of MRI Take one tab 30-60 minutes prior to each MRI 2 tablet 02/26/2021 Active Active Problems Problem Noted Date Diagnosed Date Myofascial pain on left side 02/23/2021 Retro-orbital pain of left eye 02/23/2021 Family History Medical History Relation Comments No Known Problems Brother Aneurysm Father Thyroid Disease Father No Known Problems Maternal Aunt Cancer Mother Diabetes Mother Heart Disease Mother Lung Disease Mother Osteoporosis Mother No Known Problems Sister Relation Status Comments Brother Father Maternal Aunt Mother Alive Sister Social History Tobacco Use Types Packs/Day Years Used Date Smoking Tobacco: Never Smokeless Tobacco: Never Tobacco Cessation:Counseling Given: No Alcohol Use Standard Drinks/Week Comments Not Currently 0 (1 standard drink = 0.6 oz pur e alcohol) Comments Unknown Sex and Gender Information Value Date Recorded Sex Assigned at Not on file Legal Sex Female 7:52 PM CDT Gender Identity Not on file Sexual Orientation Not on file Last Filed Vital Signs Vital Sign Reading Time Taken Comments Blood Pressure 118/72 03/16/2021 8:51 AM SUPERVISOR COMPOUNDING AND FINISHING Pulse 77 03/16/2021 8:51 AM SUPERVISOR COMPOUNDING AND FINISHING Temperature 36.5 C (97.7 F) 03/16/2021 8:51 AM SUPERVISOR COMPOUNDING AND FINISHING Respiratory Rate 16 03/16/2021 8:51 AM SUPERVISOR COMPOUNDING AND FINISHING Oxygen Saturation 98% 03/16/2021 8:51 AM SUPERVISOR COMPOUNDING AND FINISHING Inhaled Oxygen Concentration - - Weight 54.4 kg (120 lb) 03/16/2021 8:51 AM SUPERVISOR COMPOUNDING AND FINISHING Height 157.5 cm (5' 2 ) 03/16/2021 8:51 AM SUPERVISOR COMPOUNDING AND FINISHING Body Mass Index 21.95 03/16/2021 8:51 AM SUPERVISOR COMPOUNDING AND FINISHING Plan of Treatment Health Maintenance Due Date Last Done Comments Colorectal Cancer Screening Colonoscopy (10 Years) 1957 COVID-19 Vaccine (#1) 1962 Pneumococcal Vaccine: 65+ Ye ars (1 of 2 - PCV) 1963 Hepatitis C 1975 DTaP, Tdap and Td Vaccines ( 1 - Tdap) 01/07/1976 Zoster Vaccines (1 of 2) 01/07/1976 Mammogram Screening 1997 RSV Immunization or 60+ Years (1 - Risk 60-74 years 1-dose series) 2017 Dexa Scan (General) 2022 Influenza Adult (#1) 2024 Meningococcal B Vaccine Aged Out No l onger eligible based on patient's age to complete this topic Meningococcal Vaccine Aged Out No dimitrios larissa eligible based on patient's age to complete this topic RSV Immunizations Under 20 Months Aged Out No longer eligible based on patient's age to complete this topic Insurance [facility] Care Teams Cosmetician Apprentice Relationship Specialty Start Date End Date Helder Jordan MD [address] [place] [id number] PCP - General INTERNAL MEDICINE 11/08/19
[2024-07-15 08:12] LABS: Hematocrit 40.8 % (37.0-47.0); Hemoglobin 13.6 g/dL (12.0-15.0); Mean Corpuscular HGB Conc 33.3 g/dl (32-36); Mean Corpuscular Hemoglobin 30.4 pg (26-34); Mean Corpuscular Volume 91.3 fl (80-100); Mean Platelet Volume 9.4 fl (7.4-10.4); Platelet Count Result 302 k/mm3 (150-375); Red Blood Count 4.47 M/mm3 (4.2-5.4); Red Cell Distribution Width 12.2 % (11.5-14.5); White Blood Count 4.1 K/mm3 (4.5-10.0)
[2024-07-15 08:26] LABS: Alanine Aminotransferase 18 U/L (6-35); Albumin Level 4.6 g/dL (3.5-5.1); Alkaline Phosphatase 39 U/L (38-126); Anion Gap 6 mmol/L (4-12); Aspartate Amino Transferase 26 U/L (14-36); Bilirubin,Total 0.6 mg/dL (0.2-1.3); Blood Urea Nitrogen 21 mg/dL (7-17); Calcium 9.6 mg/dL (8.4-10.2); Carbon Dioxide 29 mmol/L (22-30); Chloride 103 mmol/L (98-107); Cholesterol 224 mg/dL (0-200); Estimated Glomerular Filt Rate > 60; Glucose 79 mg/dL (65-110); HDL Direct 58 mg/dL; Potassium 4.3 mmol/L (3.4-5.0); Sodium 138 mmol/L (137-145); Triglycerides 88 mg/dL (<150)
[2024-07-15 08:37] LABS: LDL Cholesterol Direct 128 mg/dL
[2024-07-15 09:17] LABS: Vitamin B12 > 1000.0 pg/mL (239-931)
[2024-07-17 02:28] LABS: CRP, High Sensitivity 0.4 mg/L
[2024-07-20 08:13] LABS: Apolipoprotein B 118 mg/dL
== END 2024-07-15 06:59 | disposition home or self-care (01) ==
PROVIDERS: PCP Family Medicine; Visit Provider Family Medicine
DX: E78.5 Hyperlipidemia, unspecified (principal); K21.9 Gastro-esophageal reflux disease without esophagitis; K52.9 Noninfective gastroenteritis and colitis, unspecified; N39.0 Urinary tract infection, site not specified; R51.9 Headache, unspecified; G47.00 Insomnia, unspecified; R53.83 Other fatigue; Z00.00 Encounter for general adult medical examination without abnormal findings; Z79.899 Other long term (current) drug therapy
CPT/HCPCS: 36415; 80053; 80061; 82172; 82306; 82607; 85027; 86141

== ENCOUNTER 2024-09-17 07:04 | Outpatient (CLI) | payer MEDICARE, SELFPAY ==
[2024-09-17 07:58] LABS: Basophils Absolute Auto 0.1 K/mm3 (0.0-0.1); Basophils Percent Auto 2.3 % (0.2-1.2); Eosinophils Absolute Auto 0.1 K/mm3 (0-0.3); Eosinophils Percent Auto 1.5 % (0-4.4); Hematocrit 41.8 % (37.0-47.0); Hemoglobin 13.4 g/dL (12.0-15.0); Immature Granulocyte Absolute 0.01 K/mm3 (0.00-0.031); Immature Granulocyte Percent A 0.2 % (0-0.5); Lymphocytes Percent Auto 39.5 % (18.3-44.2); Mean Corpuscular HGB Conc 32.1 g/dl (32-36); Mean Corpuscular Hemoglobin 29.5 pg (26-34); Mean Corpuscular Volume 92.1 fl (80-100); Mean Platelet Volume 9.3 fl (7.4-10.4); Monocytes Absolute Auto 0.3 K/mm3 (0.1-0.6); Monocytes Percent Auto 7.1 % (2.6-8.5); Neutrophils Absolute Auto 2.4 K/mm3 (1.3-6.7); Neutrophils Percent Auto 49.4 % (45.5-73.1); Platelet Count Result 299 k/mm3 (150-375); Red Blood Count 4.54 M/mm3 (4.2-5.4); Red Cell Distribution Width 12.1 % (11.5-14.5); White Blood Count 4.8 K/mm3 (4.5-10.0)
== END 2024-09-17 07:05 | disposition home or self-care (01) ==
LOC: ANHLAB 07:06
PROVIDERS: PCP Family Medicine; Visit Provider Family Medicine
DX: D72.819 Decreased white blood cell count, unspecified (principal)
CPT/HCPCS: 36415; 85025

== ENCOUNTER 2024-09-23 09:35 | Outpatient (CLI) | payer MEDICARE, SELFPAY ==
[2024-09-23 10:28] LABS: Alanine Aminotransferase 22 U/L (6-35); Aspartate Amino Transferase 52 U/L (14-36)
== END 2024-09-23 09:36 | disposition home or self-care (01) ==
LOC: ANHLAB 09:37
PROVIDERS: PCP Family Medicine; Visit Provider Podiatrist Foot & Ankle Surgery
DX: B35.1 Tinea unguium (principal)
CPT/HCPCS: 36415; 84450; 84460

== ENCOUNTER 2025-01-19 13:52 | Outpatient (CLI) | payer MEDICARE, SELFPAY ==
[2025-01-19 14:50] LABS: Hematocrit 40.2 % (37.0-47.0); Hemoglobin 13.3 g/dL (12.0-15.0); Immature Granulocyte Percent A 0.2 % (0-0.5); Lymphocytes Absolute Auto 1.62 K/mm3 (0.9-3.2); Mean Corpuscular HGB Conc 33.1 g/dl (32-36); Mean Corpuscular Hemoglobin 29.7 pg (26-34); Mean Corpuscular Volume 89.7 fl (80-100); Nucleated Red Blood Cells Absolute Auto 0.000 K/mm3 (0.0-0.012); Nucleated Red Blood Cells Perc 0.0 % (0.0-0.2); Platelet Count Result 322 k/mm3 (150-375); Red Blood Count 4.48 M/mm3 (4.2-5.4); White Blood Count 5.8 K/mm3 (4.5-10.0)
[2025-01-19 16:32] LABS: Alanine Aminotransferase 18 U/L (6-35); Albumin Level 4.5 g/dL (3.5-5.1); Alkaline Phosphatase 47 U/L (38-126); Anion Gap 6 mmol/L (4-12); Aspartate Amino Transferase 32 U/L (14-36); Bilirubin,Total 0.3 mg/dL (0.2-1.3); Blood Urea Nitrogen 15 mg/dL (7-17); Calcium 9.4 mg/dL (8.4-10.2); Carbon Dioxide 28 mmol/L (22-30); Chloride 103 mmol/L (98-107); Estimated Glomerular Filt Rate > 60; Glucose 77 mg/dL (65-110); Potassium 4.2 mmol/L (3.4-5.0); Sodium 137 mmol/L (137-145); Total Protein 7.6 g/dL (6.3-8.2)
[2025-01-19 17:26] LABS: Vitamin B12 840.0 pg/mL (239-931)
== END 2025-01-19 13:53 | disposition home or self-care (01) ==
PROVIDERS: PCP Family Medicine; Visit Provider Family Medicine
DX: Z00.00 Encounter for general adult medical examination without abnormal findings (principal); B35.1 Tinea unguium; E55.9 Vitamin D deficiency, unspecified; K21.9 Gastro-esophageal reflux disease without esophagitis; R51.9 Headache, unspecified; G47.00 Insomnia, unspecified; R53.83 Other fatigue
CPT/HCPCS: 36415; 80053; 82172; 82306; 82607; 85025

== ENCOUNTER 2025-01-26 09:35 | Outpatient (CLI) | payer MEDICARE, SELFPAY ==
--- NOTE | ~2025-01-26 | MM_ITS ---
EXAMINATION: MM screening [facility] BI w malcom HISTORY: Screening TECHNIQUE: Craniocaudal and mediolateral oblique 3-D tomosynthesis images were obtained and synthetic 2-D images were generated. CAD analysis was submitted and interpreted. COMPARISON: 12/11/2022 BREAST PARENCHYMAL COMPOSITION: The breasts are extremely dense, which lowers the sensitivity of mammography. FINDINGS: There is no evidence of suspicious mass, calcification, or architectural distortion to suggest malignancy. There has been no suspicious interval change. IMPRESSION: 1. No mammographic evidence of malignancy. Recommend routine screening mammography in one year. BI-RADS Category 2: Benign finding(s) Reviewed, dictated and finalized at location Q. IMPRESSION: 1. No mammographic evidence of malignancy. Recommend routine screening mammogra phy in one year. BI-RADS Category 2: Benign finding(s)
== END 2025-01-26 09:36 | disposition home or self-care (01) ==
LOC: ANHFOHIMG 09:37
PROVIDERS: PCP Family Medicine; Visit Provider Obstetrics & Gynecology
DX: Z12.31 Encounter for screening mammogram for malignant neoplasm of breast (principal)
CPT/HCPCS: 77063; 77067

== ENCOUNTER 2025-02-04 08:33 | Emergency (ER) | payer MEDICARE, SELFPAY ==
--- OUTSIDE RECORDS SUMMARY | 2025-02-04 08:37 | XMS_ITS | Clinical Summary ---
Author Organization [facility] Address [address] [place] [id number] Care Team Providers Care Sintering Press Operator Name Role Phone Helder Jordan MD Primary Care Provider [phone] Allergies Active Allergy Reactions Criticality Noted Date [...] Comments Blood Pressure 118/72 03/16/2021 8:51 AM RELIGIOUS EDUCATOR Pulse 77 03/16/2021 8:51 AM RELIGIOUS EDUCATOR Temperature 36.5 C (97.7 F) 03/16/2021 8:51 AM RELIGIOUS EDUCATOR Respiratory Rate 16 03/16/2021 8:51 AM RELIGIOUS EDUCATOR Oxygen Saturation 98% 03/16/2021 8:51 AM RELIGIOUS EDUCATOR Inhaled Oxygen Concentration - - Weight 54.4 kg (120 lb) 03/16/2021 8:51 AM RELIGIOUS EDUCATOR Height 157.5 cm (5' 2) 03/16/2021 8:51 AM RELIGIOUS EDUCATOR Body Mass Index 21.95 03/16/2021 8:51 AM RELIGIOUS EDUCATOR Plan of Treatment Health Maintenance Due Date Last Done Comments Colorectal Cancer Screening Colonoscopy (10 Years) 1957 COVID-19 Vaccine (#1) 1962 Hepatitis C 1975 DTaP, Tdap and Td Vaccines ( 1 - Tdap) 01/07/1976 Pneumococcal Vaccine: 50+ Ye ars (1 of 2 - PCV) 01/07/1976 Zoster Vaccines (1 of 2) 01/07/1976 Mammogram Screening 1997 RSV Immunization or 60+ Years (1 - Risk 60-74 years 1-dose series) 2017 Dexa Scan (General) 2022 Influenza Adult (#1) 2025 Hepatitis A Vaccines Aged Out No long er eligible based on patient's age to complete this topic Meningococcal B Vaccine Aged Out No l onger eligible based on patient's age to complete this topic Meningococcal Vaccine Aged Out No dimitrios larissa eligible based on patient's age to complete this topic RSV Immunizations Under 20 Months Aged Out No longer eligible based on patient's age to complete this topic Insurance Care Teams Sintering Press Operator Relationship Specialty Start Date End Date Helder Jordan MD [address] [place] [id number] PCP - General INTERNAL MEDICINE 11/08/19
[2025-02-04 08:41] VITALS: BP 113/74; PULSE 86; RESP 18; TEMP 36.9; O2SAT 100
--- NOTE | 2025-02-04 09:21 | ED.URI ---
HPI - URI/Sore Throat General Chief Complaint: Upper Respiratory Infection Stated Complaint: Sinus Time Seen by Provider: 02/04/25 09:11 Source: patient and RN notes reviewed Mode of arrival: ambulatory Limitations: no limitations History of Present Illness HPI Narrative: 70-year-old female patient presents today with a 12 day history of nasal congestion, cough, ear fullness, postnasal drainage. Today she developed a headache and worsening sinus pressure. She has tried multiple [id number] treatments such as Robitussin, Tylenol, saline nasal spray, Afrin without much improvement. Related Data Home Medications ?Medication ?Instructions ?Recorded ?Confirmed ?Last Taken ?Type glucosamine HCl 1,500 mg tablet 1,500 mg PO DAILY 05/13/24 10/22/24 Unknown History cholecalciferol (vitamin D3) 10 10 mcg PO DAILY 10/22/24 10/22/24 Unknown History mcg (400 unit) tablet (Vitamin D3) hypochlorous acid 0.01 %-sodium 1 spray topical BID 10/22/24 10/22/24 Unknown History chloride topical spray (Thera Tears SteriLid) lutein 40 mg capsule 40 mg PO DAILY 01/19/25 Unknown History Allergies Allergy/AdvReac Type Severity Reaction Status Date / Time prednisone Allergy Mild Rash Verified 02/04/25 08:57 Sulfa (Sulfonamide Allergy Mild SWELLING, Verified 02/04/25 08:57 Antibiotics) HIVES meperidine (From Demerol) Allergy Unknown Swelling, Verified 02/04/25 08:57 RASH PMFSH Past Medical History Medical History Lumbago Right shoulder pain DJD of shoulder GERD (gastroesophageal reflux disease) Irritable bowel syndrome with diarrhea Hyperlipidemia Shoulder pain, left Colon cancer screening Chronic diarrhea Callus of toe Insomnia Wears glasses Claustrophobia Acquired hallux valgus of left foot Hallux rigidus of left foot Surgical History Surgical History History of surgery on wrist History of Family History Family History Mother Hypertension Acute myocardial infarction Family history of elevated blood lipids Family history of coronary artery disease Father Family history of malignant neoplasm of thyroid Other Depression Diabetes mellitus Family history of arthritis Family history of malignant neoplasm Heart disease Social History Social History Smoking packs per day: 1 Smoking cigarettes per day: 20.0 Years smoked: 22 Smoking pack-years: 22.00 Smoking status: Former smoker Tobacco type: cigarettes Smoking end date: 10/12/98 Alcohol intake: current Drinks per week: 2 Substance use: never Substance use type: does not use Lack of Transportation: No Lack of Food: Never True Current Housing: I Have Housing Concerned About Future Housing: No Difficulty Paying Gas/Electric Bills: No Difficulty Paying for Meds: No Currently Unemployed: No Education: High School Diploma/GED Difficulty w/ Childcare or Family Care: No Living arrangements: with family Additional living arrangements comments: [facility] Gender identity (if verbalized by the patient): Female Spiritual care concerns: No Comments At time of signature, I have reviewed and agree with nursing past medical, surgical, social and family history unless otherwise noted. Please see nursing chart for further information. There is no relevant family history pertinent to the presenting complaint Exam Narrative: GENERAL: Mildly ill-appearing, well-nourished, and in no acute distress. HEAD: Normocephalic, atraumatic. EYES: EOMI. No redness or drainage. Conjunctivae normal. ENT: Mucous membranes pink and moist. Nares congested with rhinorrhea. Bilateral frontal and maxillary sinus tenderness. TMs normal bilaterally. Throat normal. Uvula midline. NECK: Normal AROM. Supple. No lymphadenopathy. CHEST: No respiratory distress. Clear to auscultation. HEART: Regular rate and rhythm. No murmur appreciated. EXTREMITIES: Normal range of motion. No edema. SKIN: Warm, dry, no rash. Capillary refill normal. Normal skin turgor. NEURO: No focal deficits. Alert and oriented x3. Gait steady. PSYCH: Normal affect. No signs of depression or anxiety. Course Course Level of Care: [facility] Care Visit Vital Signs Vital signs: Vital Signs Temperature 98.4 F 02/04/25 08:41 Pulse Rate 86 02/04/25 08:41 Respiratory Rate 18 02/04/25 08:41 Blood Pressure 113/74 02/04/25 08:41 Pulse Oximetry 100 02/04/25 08:41 Oxygen Delivery Room Air 02/04/25 08:41 Temperature 98.4 F 02/04/25 08:41 Pulse Rate 86 02/04/25 08:41 Respiratory Rate 18 02/04/25 08:41 Blood Pressure 113/74 02/04/25 08:41 Pulse Oximetry 100 02/04/25 08:41 Oxygen Delivery Room Air 02/04/25 08:41 Reviewed MDM - URI/Sore Throat MDM Narrative Medical decision making narrative: 70-year-old female patient presents today with a 12 day history of nasal congestion, cough, ear fullness, postnasal drainage. Today she developed a headache and worsening sinus pressure. Upon exam, patient is mildly ill appearing with nasal congestion, frontal and maxillary sinus tenderness. She will be started on a course of amoxicillin for sinusitis. Recommend continuing OTC medication as needed. Patient agrees with plan. Vital signs stable. Anticipatory guidance given. Differential Diagnosis Differential diagnosis: Likely upper respiratory infection, otitis media, sinusitis, bronchitis and other (Pneumonia) Critical Care Time Critical Care Time Critical Care Time: No Discharge Plan Discharge Clinical Impression: Sinusitis Qualifiers: Sinusitis location: unspecified location Chronicity: acute Recurrence: non-recurrent Qualified Code(s): J01.90 - Acute sinusitis, unspecified Patient Disposition: Home Condition: Stable Instructions: Antibiotic Form, Sinusitis (ED) Additional Instructions: Please take the amoxicillin as prescribed until gone. Continue OTC medication as needed for symptoms. Follow-up with your PCP next week if symptoms are not improving. Patient Language: Welsh Prescriptions: New amoxicillin 875 mg tablet 875 mg PO Q12H 7 Days Qty: 14 0RF No Action lutein 40 mg capsule 40 mg PO DAILY Rx Instructions: administer with meals trazodone 50 mg tablet 50 mg PO QHS PRN (Reason: insomnia) Qty: 90 0RF cyclobenzaprine 10 mg tablet 10 mg PO .HS PRN (Reason: Neck spasm) Qty: 90 2RF cholecalciferol (vitamin D3) [Vitamin D3] 10 mcg (400 unit) tablet 10 mcg PO DAILY glucosamine HCl 1,500 mg tablet 1,500 mg PO DAILY Rx Instructions: administer with a meal Thera Tears SteriLid 0.01 % spray,non-aerosol 1 spray topical BID Rx Instructions: 1200 mg Follow-up/Referrals: Cory Beyer MD [Primary Care Provider, Family Practice] Time of Disposition: 09:25
== END 2025-02-04 09:30 | disposition home or self-care (01) ==
PROVIDERS: Emergency Provider Nurse Practitioner; PCP Family Medicine
DX: J01.90 Acute sinusitis, unspecified (principal); E78.5 Hyperlipidemia, unspecified; Z87.891 Personal history of nicotine dependence
CPT/HCPCS: 99213; G0463

== ENCOUNTER 2025-04-05 07:31 | Outpatient (NON) | payer MEDICARE, SELFPAY ==
[2025-04-05 11:52] LABS: Toxigenic C. Diff NEGATIVE (NEGATIVE)
== END 2025-04-05 07:32 | disposition home or self-care (01) ==
PROVIDERS: PCP Family Medicine; Visit Provider Nurse Practitioner
DX: M47.816 Spondylosis without myelopathy or radiculopathy, lumbar region (principal); K58.0 Irritable bowel syndrome with diarrhea
CPT/HCPCS: 87045; 87046; 87177; 87427; 87493

== ENCOUNTER 2025-04-06 07:21 | Outpatient (CLI) | payer MEDICARE, SELFPAY | END 2025-04-06 07:22 | disposition home or self-care (01) | PROVIDERS: PCP Family Medicine; Visit Provider Nurse Practitioner | DX: M47.816 Spondylosis without myelopathy or radiculopathy, lumbar region (principal); K58.0 Irritable bowel syndrome with diarrhea | CPT/HCPCS: 87045; 87046; 87427 ==